=== PATIENT | female | born 1950 | race Caucasian/White ===

== ENCOUNTER → 2018-10-05 | Day surgery (SDC) | payer MEDICARE ==
[~2018-10-05] VITALS: Ht 152.4 cm; Wt 68.0 kg
[~2018-10-05] MED LIST: ACET-2853 MT; AMLO10TA80 PO; ASPI-1159 PO; CIPROFLOXACIN 0.3% OPHTH SOLN 2.5ML RIGHTEYE SCH; DONE5TAB33 PO; FENTANYL CITRATE/PF 50MCG/ML 2ML VIAL ONE; LISI40TA4 PO; METF-414 PO; METHYLPREDNISOLONE SOD SUCC 40 MG/ML VIAL ONE; METOCLOPRAMIDE HCL 10MG/2ML VIAL ONE; NEO/POLYMYX B SULF/DEXAMETH OPHTH OINT 3.5GM ONE; ONDANSETRON HCL 4MG/2ML INJ ONE; PRAV10TA35 PO; PROPOFOL 200MG/20ML VIAL IV ONE; SODIUM CHLORIDE 0.9% 1,000 ML IV SCH; TETRACAINE 0.5% OPHTH DROPS 4ML ONE; TOBRAMYCIN SULFATE 80MG/2ML 30ML ONE
== END | disposition home or self-care (01) ==
LOC: OR 07:11
PROVIDERS: ATTEND Ophthalmology
DX: H11.001 Unspecified pterygium of right eye (principal); I10 Essential (primary) hypertension; E11.9 Type 2 diabetes mellitus without complications; E66.01 Morbid (severe) obesity due to excess calories; M19.90 Unspecified osteoarthritis, unspecified site
CPT/HCPCS: 65426; 82962; 88304; J2405; J2704; J2765; J2920; J3010; J3260; J7040

== ENCOUNTER 2019-08-09 07:32 | Day surgery (SDC) | payer MEDICARE ==
[~2019-08-09] VITALS: Ht 157.5 cm; Wt 81.6 kg
[~2019-08-09 07:32] MED LIST changes: -ACET-2853 MT; +ACET650T37 MT; -ASPI-1159 PO; +ASPI-1497 PO; +CIPROFLOXACIN 0.3% OPHTH SOLN 2.5ML RIGHTEYE ONE; -CIPROFLOXACIN 0.3% OPHTH SOLN 2.5ML RIGHTEYE SCH; -FENTANYL CITRATE/PF 50MCG/ML 2ML VIAL ONE; -METHYLPREDNISOLONE SOD SUCC 40 MG/ML VIAL ONE; -METOCLOPRAMIDE HCL 10MG/2ML VIAL ONE; -NEO/POLYMYX B SULF/DEXAMETH OPHTH OINT 3.5GM ONE; -ONDANSETRON HCL 4MG/2ML INJ ONE; -PROPOFOL 200MG/20ML VIAL IV ONE; -SODIUM CHLORIDE 0.9% 1,000 ML IV SCH; -TETRACAINE 0.5% OPHTH DROPS 4ML ONE; -TOBRAMYCIN SULFATE 80MG/2ML 30ML ONE
[2019-08-09] MEDS ORDERED: TOBRAMYCIN SULFATE 80MG/2ML 30ML ONE (08:11)
[2019-08-09] MEDS ORDERED: METHYLPREDNISOLONE SOD SUCC 40 MG/ML VIAL ONE (08:11)
[2019-08-09] MEDS ORDERED: LIDOCAINE HCL 2%/EPINEPHRINE 1:100,000 20 ML VIAL INFIL ONE (13:01)
[2019-08-09] MEDS ORDERED: CIPROFLOXACIN 0.3% OPHTH SOLN 2.5ML ONE (13:01)
[2019-08-09] MEDS ORDERED: BALANCED SALT IRRIG SOLN 15ML ONE (13:01)
== END 2019-08-09 12:10 | disposition home or self-care (01) ==
LOC: OR 07:32
PROVIDERS: ATTEND Ophthalmology
DX: H11.001 Unspecified pterygium of right eye (principal); E11.9 Type 2 diabetes mellitus without complications; I10 Essential (primary) hypertension; E78.00 Pure hypercholesterolemia, unspecified; Z79.82 Long term (current) use of aspirin; Z79.899 Other long term (current) drug therapy; Z79.84 Long term (current) use of oral hypoglycemic drugs
CPT/HCPCS: 65420; 82962; 88304; J1200; J2250; J2920; J3010; J3260; J3490